=== PATIENT | female | born 1935 ===

== ENCOUNTER 2016-10-05 19:42 | Inpatient (IN) | payer MEDICARE ==
[2016-10-05 19:43] VITALS: BMI 27.4
[2016-10-05 22:53] LABS: BASO % 0.4 % (0.0-2.0); EOS # 0.1 K/uL (0.0-0.7); EOS % 1.1 % (0.0-4.0); HEMATOCRIT 40.3 % (34.0-47.0); LYMPH # 1.5 K/uL (1.0-4.3); LYMPH % 25.8 % (20.0-40.0); MEAN CORPUSCULAR HEMOGLOBIN 29.8 pg (27.0-31.0); MEAN CORPUSCULAR HGB CONC 33.6 g/dL (33.0-37.0); MEAN PLATELET VOLUME 7.9 fL (7.2-11.7); MONO # 0.4 K/uL (0.0-0.8); RED CELL DISTRIBUTION WIDTH 13.4 % (11.5-14.5)
[2016-10-05 22:54] LABS: RBC URINE 1 /hpf (0-3); URINE BILIRUBIN NEGATIVE (NEGATIVE); URINE BLOOD NEGATIVE (NEGATIVE); URINE COLOR Yellow (YELLOW); URINE GLUCOSE (UA) NORMAL (Normal); URINE KETONE NEGATIVE (NEGATIVE); URINE LEUKOCYTE ESTERASE TRACE Leu/uL (Negative); URINE PROTEIN NEGATIVE (NEGATIVE); URINE UROBILINOGEN NORMAL mg/dL (0.2-1.0); WBC URINE 1 /hpf (0-5)
[2016-10-05 22:57] LABS: MEAN CELL VOLUME 88.7 fL (81.0-99.0)
[2016-10-05 23:01] LABS: CHLORIDE 97 mmol/L (98-107); POTASSIUM 3.7 mmol/L (3.6-5.2); SODIUM 142 mmol/L (132-148)
[2016-10-05] MEDS ORDERED: Sodium Chloride 0.9% 2,000 ML IV ONE (23:02)
[2016-10-05 23:03] LABS: AST/SGOT 22 U/L (14-36); BILIRUBIN,TOTAL 0.6 mg/dL (0.2-1.3); CARBON DIOXIDE 29 mmol/L (22-30); GFR AFRICAN-AMERICAN > 60
[2016-10-05] MEDS ORDERED: Loperamide Hydrochloride 1 mg/5 ml Cup PO STA (23:03)
[2016-10-05 23:04] LABS: ALB/GLOB RATIO 1.4 (1.0-2.1); ALKALINE PHOSPHATASE 51 U/L (38-126); ALT/SGPT 13 U/L (9-52); BLOOD UREA NITROGEN 13 mg/dL (7-17); CALCIUM 9.6 mg/dl (8.6-10.4); GLUCOSE,RANDOM 146 mg/dL (65-105); TOTAL PROTEIN 7.6 g/dL (6.3-8.3)
[2016-10-05] MEDS ORDERED: Sodium Chloride 0.9% 1,000 ML ONE (23:15)
--- NOTE | 2016-10-06 00:44 | C.PDOC ---
History Of Present Illness Patient presents to the emergency room with complaints of vomiting and diarrhea since yesterday. Patient reports multiple episodes of watery, non-bloody vomiting, and watery, non-bloody diarrhea. Patient also notes minimal abdominal pain. Patient has not taken anything for pain. Patient denies fever, back pain, constipation, any urinary complaints, or any other complaints. Time Seen by Provider: 10/05/16 22:22 Chief Complaint (Nursing): GI Problem History Per: Patient History/Exam Limitations: no limitations Onset/Duration Of Symptoms: Days (1) Current Symptoms Are (Timing): Still Present Severity: Mild Radiation Of Pain To:: None Quality Of Discomfort: "Pain" Associated Symptoms: Vomiting, Diarrhea. denies: Fever, Back Pain, Constipation , Urinary Symptoms Exacerbating Factors: None Alleviating Factors: None Recent travel outside of the [place]: No Past Medical History Reviewed: Historical Data, Nursing Documentation, Vital Signs Vital Signs: Last Vital Signs Temp 98.1 F 10/06/16 14:07 Pulse 52 L 10/06/16 14:07 Resp 18 10/06/16 14:07 BP 173/73 H 10/06/16 14:07 Pulse Ox 99 10/06/16 14:07 - Medical History PMH: Arthritis, Asthma, Diabetes, Diverticulitis, Gastritis, HTN, Hypercholesterolemia, Kidney Stones - [facility] Procedures CLOSED ENDOSCOPIC BIOPSY OF LARGE INTESTINE (07/20/13) ESOPHAGOGASTRODUODENOSCOPY [EGD] W/CLOSED BIOPSY (07/21/13) Family History: States: Unknown Family Hx - Social History Hx Tobacco Use: No Hx Alcohol Use: No Hx Substance Use: No - Immunization History Hx Tetanus Toxoid Vaccination: Yes Hx Influenza Vaccination: Yes Hx Pneumococcal Vaccination: Yes Review Of Systems Except As Marked, All Systems Reviewed And Found Negative. Constitutional: Negative for: Fever Gastrointestinal: Positive for: Vomiting, Abdominal Pain (Minimal abdominal pain ), Diarrhea. Negative for: Constipation Physical Exam - Physical Exam Appears: Well, Non-toxic, No Acute Distress Skin: Normal Color, Warm, Dry Head: Atraumatic, Normacephalic Cardiovascular: Rhythm Regular, No Murmur Respiratory: Normal Breath Sounds, No Rales, No Rhonchi, No Wheezing Gastrointestinal/Abdominal: Soft, No Tenderness, No Guarding, No Rebound Extremity: Normal ROM, No Pedal Edema ED Course And Treatment - Laboratory Results Result Diagrams: 10/05/16 22:48 10/05/16 22:48 O2 Sat by Pulse Oximetry: 99 Medical Decision Making Medical Decision Making: Plan: -- Labs -- Imodium & Zofran Post meds abd continues soft with min tenderness Labs unremarkable except lipase ressults discussed with pt and daughter Pt still nauseated post meds and fluids Discussed with dr Quintero, covering dr Fontaine Plan observation Disposition - Disposition Disposition: HOSPITALIZED Disposition Time: 23:00 Condition: FAIR - Clinical Impression Clinical Impression: Vomiting and diarrhea, Elevated lipase - Scribe Statement The provider has reviewed the documentation as recorded by the Scribe Wai Cox All medical record entries made by the Scribe were at my direction and personally dictated by me. I have reviewed the chart and agree that the record accurately reflects my personal performance of the history, physical exam, medical decision making, and the department course for this patient. I have also personally directed, reviewed, and agree with the discharge instructions and disposition. Decision To Admit - Pt Status Changed To: Hospital Disposition Of: Observation - . Bed Request Type: Regular Admitting Physician: Jerry Quintero Patient Diagnosis: Vomiting and diarrhea, Elevated lipase
[2016-10-06] MEDS ORDERED: Albuterol-Ipratrop 3 mg / 0.5 (3 ml) UD INH PRN (06:31)
[2016-10-06] MEDS ORDERED: Sodium Chloride 0.9% 1,000 ML ONE (06:37)
[2016-10-06] MEDS: Sodium Chloride 0.9% 1,000 ML IV SCH ×2 (06:54→14:08)
[2016-10-06] MEDS: (Novolog) Insulin Aspart, Recombinant 100 u/ml 10 ml vial SC SCH ×4 (07:55→21:24)
[2016-10-06] MEDS: Naproxen 550 mg Tab PO PRN ×2 (09:38→21:50)
--- NOTE | 2016-10-06 14:31 | CP.PCM.HP ---
History of Present Illness - History of Present Illness History of Present Illness: Patient presents to the emergency room with complaints of vomiting and diarrhea since yesterday. Patient reports multiple episodes of watery, non-bloody vomiting, and watery, non-bloody diarrhea. Patient also notes minimal abdominal pain. Patient has not taken anything for pain. Patient denies fever, back pain, constipation, any urinary complaints, or any other complaints. Present on Admission - Present on Admission Any Indicators Present on Admission: No History of DVT/PE: No History of Uncontrolled Diabetes: No Urinary Catheter: No Decubitus Ulcer Present: No Review of Systems - Review of Systems All systems: reviewed and no additional remarkable complaints except (See HPI rest negative) Past Patient History - Infectious Disease Hx of Infectious Diseases: None - Past Medical History & Family History Past Medical History?: Yes - Past Social History Smoking Status: Never Smoked - CARDIAC Hx Hypercholesterolemia: Yes Hx Hypertension: Yes - PULMONARY Hx Asthma: Yes - NEUROLOGICAL Hx Neurological Disorder: No - HEENT Hx HEENT Problems: Yes Hx Glaucoma: Yes - RENAL Hx Chronic Kidney Disease: No Hx Kidney Stones: Yes - ENDOCRINE/METABOLIC Hx Endocrine Disorders: Yes Hx Diabetes Mellitus Type 2: Yes - HEMATOLOGICAL/ONCOLOGICAL Hx Blood Disorders: No Hx Blood Transfusions: No - INTEGUMENTARY Hx Dermatological Problems: No - MUSCULOSKELETAL/RHEUMATOLOGICAL Hx Arthritis: Yes - GASTROINTESTINAL Hx Diverticulitis: Yes Hx Gastritis: Yes - GENITOURINARY/GYNECOLOGICAL Hx Genitourinary Disorders: No - PSYCHIATRIC Hx Substance Use: No - SURGICAL HISTORY Hx Surgeries: Yes Hx Hysterectomy: Yes Other/Comment: VARICOSE VEIN STRIPPING AND LIGATION LEFT LEG. - ANESTHESIA Hx Anesthesia: Yes Hx Anesthesia Reactions: No Hx Malignant Hyperthermia: No Meds Allergies/Adverse Reactions: Allergies Allergy/AdvReac Type Severity Reaction Status Date / Time No Known Allergies Allergy Verified 10/05/16 20:23 Physical Exam - Head Exam Head Exam: NORMAL INSPECTION - Eye Exam Eye Exam: Normal appearance - ENT Exam ENT Exam: Mucous Membranes Moist - Respiratory Exam Respiratory Exam: Clear to Auscultation Bilateral, NORMAL BREATHING PATTERN - Cardiovascular Exam Cardiovascular Exam: REGULAR RHYTHM, +S1, +S2 - GI/Abdominal Exam GI & Abdominal Exam: Hyperactive Bowel Sounds, Soft - Exam External exam: NORMAL EXTERNAL EXAM Results - Vital Signs Recent Vital Signs: Last Vital Signs Temp 98.1 F 10/06/16 14:07 Pulse 52 L 10/06/16 14:07 Resp 18 10/06/16 14:07 BP 173/73 H 10/06/16 14:07 Pulse Ox 99 10/06/16 14:07 - Labs Result Diagrams: 10/05/16 22:48 10/05/16 22:48 Labs: Laboratory Results - last 24 hr 10/06/16 10/06/16 10/06/16 06:43 07:53 11:31 POC Glucose (mg/dL) 108 112 H Lipase 810 H Assessment & Plan - Assessment and Plan (Free Text) Assessment: Pancreatitis HTN DM NPO IVF Trend lipase Zofran PRN IV PPI Accucheck ISS Atenolol Enalapril
[2016-10-06 14:43] VITALS: RESP 20
[2016-10-07] MEDS: Sodium Chloride 0.9% 1,000 ML IV SCH ×6 (05:48→21:25)
[2016-10-07] MEDS: (Novolog) Insulin Aspart, Recombinant 100 u/ml 10 ml vial SC SCH ×4 (07:53→21:29)
[2016-10-07 08:07] LABS: CHLORIDE 107 mmol/L (98-107)
[2016-10-07 08:08] LABS: POTASSIUM 3.3 mmol/L (3.6-5.2); SODIUM 142 mmol/L (132-148)
[2016-10-07 08:10] LABS: ALB/GLOB RATIO 1.1 (1.0-2.1); AST/SGOT 21 U/L (14-36); BILIRUBIN,TOTAL 0.6 mg/dL (0.2-1.3); BLOOD UREA NITROGEN 10 mg/dL (7-17); CARBON DIOXIDE 26 mmol/L (22-30); GFR AFRICAN-AMERICAN > 60; TOTAL PROTEIN 5.6 g/dL (6.3-8.3)
[2016-10-07 08:11] LABS: ALKALINE PHOSPHATASE 38 U/L (38-126); ALT/SGPT 28 U/L (9-52); CALCIUM 7.8 mg/dl (8.6-10.4); GLUCOSE,RANDOM 78 mg/dL (65-105)
[2016-10-07] MEDS: Naproxen 550 mg Tab PO PRN (11:08)
[2016-10-07] MEDS ORDERED: Potassium Chloride 20 mEq/15 ml LIQ UD PO ONE (12:45)
--- NOTE | 2016-10-07 14:31 | CP.PCM.PN ---
Subjective - Date & Time of Evaluation Date of Evaluation: 10/07/16 Time of Evaluation: 14:30 - Subjective Subjective: Patient seen and examined Reports that her abdominal pain is resolved Objective - Vital Signs/Intake and Output Vital Signs (last 24 hours): Temp Pulse Resp BP Pulse Ox 98.4 F 54 L 20 148/80 97 10/07/16 00:00 10/07/16 00:00 10/07/16 00:00 10/07/16 11:08 10/07/16 00:00 - Medications Medications: Current Medications Albuterol/Ipratropium (Duoneb 3 Mg/0.5 Mg (3 Ml) Ud) 3 ml INH RQ6 PRN PRN Reason: SOB/wheezing Aspirin (Ecotrin) 81 mg PO DAILY [facility] Last Admin: 10/07/16 11:08 Dose: 81 mg Atenolol (Tenormin) 25 mg PO DAILY [facility] Last Admin: 10/07/16 11:09 Dose: 25 mg Enalapril Maleate (Vasotec) 5 mg PO DAILY [facility] Last Admin: 10/07/16 11:08 Dose: 5 mg Heparin Sodium (Porcine) (Heparin) 5,000 units SC Q8 [facility] Last Admin: 10/07/16 13:28 Dose: 5,000 units Sodium Chloride (Sodium Chloride 0.9%) 1,000 mls @ 150 mls/hr IV .Q6H40M [facility] Last Admin: 10/07/16 05:49 Dose: Not Given Dextrose (Dextrose 10% In Water) 1,000 mls @ 30 mls/hr IV .Q24H [facility] Last Admin: 10/06/16 21:46 Dose: 30 mls/hr Insulin Aspart (Novolog) 0 unit SC ACHS [facility] PRN Reason: Protocol Last Admin: 10/07/16 12:55 Dose: Not Given Naproxen (Anaprox Ds) 550 mg PO Q12H PRN PRN Reason: Pain, Mild (1-3) Last Admin: 10/07/16 11:08 Dose: 550 mg Ondansetron HCl (Zofran Inj) 4 mg IVP Q6H PRN PRN Reason: Nausea/Vomiting Last Admin: 10/06/16 14:08 Dose: 4 mg Pantoprazole Sodium (Protonix Inj) 40 mg IVP DAILY [facility] Last Admin: 10/07/16 11:09 Dose: 40 mg - Labs Labs: 10/07/16 07:46 - Head Exam Head Exam: NORMAL INSPECTION - Eye Exam Eye Exam: Normal appearance - ENT Exam ENT Exam: Mucous Membranes Moist - Respiratory Exam Respiratory Exam: Clear to Ausculation Bilateral - Cardiovascular Exam Cardiovascular Exam: REGULAR RHYTHM - GI/Abdominal Exam GI & Abdominal Exam: Soft, Normal Bowel Sounds - Extremities Exam Extremities Exam: Normal Inspection - Neurological Exam Neurological Exam: Alert, Oriented x3 Assessment and Plan - Assessment and Plan (Free Text) Assessment: Pancreatitis HTN DM Improved lipase Keep patient n.p.o. Continue IV fluids Abdominal sono Zofran PRN IV PPI Accucheck ISS Atenolol Enalapril
--- NOTE | 2016-10-07 16:00 | US ---
Right upper quadrant ultrasound dated 09/09/2016. History: Elevated lipase. Sonographic evaluation limited to the right upper quadrant of the abdomen performed. Comparison made with prior abdominal ultrasound 09/18/2016. The liver exhibits normal size measuring 12.2 cm in CC dimension liver exhibits smooth contour and normal echotexture. No evidence of hepatic mass or collection seen. No ascites. Gallbladder is physiologically distended. No evidence of intraluminal gallbladder calculi. No pericholecystic fluid collections or sonographic Bullock sign. Common bile duct is mildly dilated measuring 7.3 mm. Visualized portions of the pancreas appear grossly unremarkable. Right kidney is also normal without mass collection or calcification. Impression: Mildly dilated common bile duct.
[2016-10-08] MEDS: Sodium Chloride 0.9% 1,000 ML IV SCH (05:59)
[2016-10-08] MEDS: (Novolog) Insulin Aspart, Recombinant 100 u/ml 10 ml vial SC SCH ×4 (07:58→21:41)
[2016-10-08] MEDS ORDERED: Sodium Chloride 0.9% 1,000 ML IV SCH (08:59)
[2016-10-08 17:21] LABS: CHLORIDE 106 mmol/L (98-107); POTASSIUM 3.6 mmol/L (3.6-5.2); SODIUM 141 mmol/L (132-148)
[2016-10-08 17:23] LABS: GFR AFRICAN-AMERICAN > 60
[2016-10-08 17:24] LABS: BLOOD UREA NITROGEN 4 mg/dL (7-17); CALCIUM 8.1 mg/dl (8.6-10.4); CARBON DIOXIDE 22 mmol/L (22-30); GLUCOSE,RANDOM 106 mg/dL (65-105)
--- NOTE | 2016-10-08 19:46 | CP.PCM.PN ---
Subjective - Date & Time of Evaluation Date of Evaluation: 10/08/16 Time of Evaluation: 19:46 - Subjective Subjective: Patient seen and examined Clear liquid started Denies any abdominal pain Complain of constipation Objective - Vital Signs/Intake and Output Vital Signs (last 24 hours): Temp Pulse Resp BP Pulse Ox 97.6 F 53 L 20 172/67 H 97 10/08/16 08:00 10/08/16 08:00 10/08/16 08:00 10/08/16 10:09 10/08/16 08:00 Intake and Output: 10/08/16 10/09/16 18:59 06:59 Intake Total 400 Balance 400 - Medications Medications: Current Medications Albuterol/Ipratropium (Duoneb 3 Mg/0.5 Mg (3 Ml) Ud) 3 ml INH RQ6 PRN PRN Reason: SOB/wheezing Aspirin (Ecotrin) 81 mg PO DAILY [facility] Last Admin: 10/08/16 10:11 Dose: 81 mg Atenolol (Tenormin) 25 mg PO DAILY [facility] Last Admin: 10/08/16 10:09 Dose: 25 mg Enalapril Maleate (Vasotec) 5 mg PO DAILY [facility] Last Admin: 10/08/16 10:09 Dose: 5 mg Heparin Sodium (Porcine) (Heparin) 5,000 units SC Q8 [facility] Last Admin: 10/08/16 14:48 Dose: 5,000 units Insulin Aspart (Novolog) 0 unit SC ACHS [facility] PRN Reason: Protocol Last Admin: 10/08/16 18:29 Dose: Not Given Naproxen (Anaprox Ds) 550 mg PO Q12H PRN PRN Reason: Pain, Mild (1-3) Last Admin: 10/07/16 11:08 Dose: 550 mg Ondansetron HCl (Zofran Inj) 4 mg IVP Q6H PRN PRN Reason: Nausea/Vomiting Last Admin: 10/06/16 14:08 Dose: 4 mg Pantoprazole Sodium (Protonix Inj) 40 mg IVP DAILY [facility] Last Admin: 10/08/16 10:11 Dose: 40 mg - Labs Labs: 10/08/16 17:06 - Head Exam Head Exam: NORMAL INSPECTION - ENT Exam ENT Exam: Mucous Membranes Moist - Respiratory Exam Respiratory Exam: Clear to Ausculation Bilateral - Cardiovascular Exam Cardiovascular Exam: REGULAR RHYTHM - GI/Abdominal Exam GI & Abdominal Exam: Soft, Normal Bowel Sounds - Exam External exam: NORMAL EXTERNAL EXAM Assessment and Plan - Assessment and Plan (Free Text) Assessment: Pancreatitis HTN DM Lactulose 15 mL 1 dose now Abdominal swallow results noted Zofran PRN IV PPI Accucheck ISS Atenolol Enalapril DC planning for tomorrow morning
[2016-10-09 08:54] VITALS: TEMP 97.9
[2016-10-09] MEDS: (Novolog) Insulin Aspart, Recombinant 100 u/ml 10 ml vial SC SCH ×2 (09:00→13:06)
[2016-10-09] MEDS ORDERED: Belladonna-Phenobarbital PO ONE (11:49)
--- NOTE | 2016-10-09 16:58 | CP.PCM.PN ---
Subjective - Date & Time of Evaluation Date of Evaluation: 10/09/16 Time of Evaluation: 16:58 - Subjective Subjective: Awake, alert, no acute pain, NAD. Objective - Vital Signs/Intake and Output Vital Signs (last 24 hours): Temp Pulse Resp BP Pulse Ox 97.9 F 60 20 163/77 H 97 10/09/16 08:53 10/09/16 08:53 10/09/16 08:53 10/09/16 09:00 10/09/16 08:53 Intake and Output: 10/09/16 10/09/16 06:59 18:59 Intake Total 300 340 Balance 300 340 - Medications Medications: Current Medications Albuterol/Ipratropium (Duoneb 3 Mg/0.5 Mg (3 Ml) Ud) 3 ml INH RQ6 PRN PRN Reason: SOB/wheezing Aspirin (Ecotrin) 81 mg PO DAILY [facility] Last Admin: 10/09/16 09:01 Dose: 81 mg Atenolol (Tenormin) 25 mg PO DAILY [facility] Last Admin: 10/09/16 09:01 Dose: 25 mg Enalapril Maleate (Vasotec) 5 mg PO DAILY [facility] Last Admin: 10/09/16 09:00 Dose: 5 mg Heparin Sodium (Porcine) (Heparin) 5,000 units SC Q8 [facility] Last Admin: 10/09/16 13:18 Dose: 5,000 units Insulin Aspart (Novolog) 0 unit SC ACHS [facility] PRN Reason: Protocol Last Admin: 10/09/16 13:06 Dose: Not Given Naproxen (Anaprox Ds) 550 mg PO Q12H PRN PRN Reason: Pain, Mild (1-3) Last Admin: 10/07/16 11:08 Dose: 550 mg Ondansetron HCl (Zofran Inj) 4 mg IVP Q6H PRN PRN Reason: Nausea/Vomiting Last Admin: 10/09/16 09:06 Dose: 4 mg Pantoprazole Sodium (Protonix Inj) 40 mg IVP DAILY [facility] Last Admin: 10/09/16 10:00 Dose: 40 mg - Labs Labs: 10/08/16 17:06 Assessment and Plan - Assessment and Plan (Free Text) Assessment: Patient is seen and examined. Alert and awake, no acute abdominal pain or vomiting. Tolerating diet. Lipase back to normal. D/W DR Quintero, plan to discharge home today. Advised to advance diet slowly and f/u with PMD in 1 week.
[2016-10-09 17:11] VITALS: BP 131/69; PULSE 54; O2SAT 96
--- NOTE | 2016-10-09 22:27 | CP.PCM.DIS ---
Provider - Provider Date of Admission: 10/06/16 14:36 Attending physician: El De Dios MD Time Spent in preparation of Discharge (in minutes): 25 Diagnosis - Discharge Diagnosis (1) Pancreatitis Status: Acute Hospital Course - Lab Results Lab Results: Most Recent Lab Values WBC 6.0 K/uL (4.8-10.8) 10/05/16 22:48 RBC 4.55 Mil/uL (3.80-5.20) 10/05/16 22:48 Hgb 13.5 g/dL (11.0-16.0) 10/05/16 22:48 Hct 40.3 % (34.0-47.0) 10/05/16 22:48 MCV 88.7 fL (81.0-99.0) D 10/05/16 22:48 MCH 29.8 pg (27.0-31.0) 10/05/16 22:48 MCHC 33.6 g/dL (33.0-37.0) 10/05/16 22:48 RDW 13.4 % (11.5-14.5) 10/05/16 22:48 Plt Count 184 K/uL (130-400) 10/05/16 22:48 MPV 7.9 fL (7.2-11.7) 10/05/16 22:48 Neut % (Auto) 66.7 % (50.0-75.0) 10/05/16 22:48 Lymph % (Auto) 25.8 % (20.0-40.0) 10/05/16 22:48 [place] % (Auto) 6.0 % (0.0-10.0) 10/05/16 22:48 Eos % (Auto) 1.1 % (0.0-4.0) 10/05/16 22:48 Baso % (Auto) 0.4 % (0.0-2.0) 10/05/16 22:48 Neut # 4.0 K/uL (1.8-7.0) 10/05/16 22:48 Lymph # 1.5 K/uL (1.0-4.3) 10/05/16 22:48 [place] # 0.4 K/uL (0.0-0.8) 10/05/16 22:48 Eos # 0.1 K/uL (0.0-0.7) 10/05/16 22:48 Baso # 0.0 K/uL (0.0-0.2) 10/05/16 22:48 Sodium 141 mmol/L (132-148) 10/08/16 17:06 Potassium 3.6 mmol/L (3.6-5.2) 10/08/16 17:06 Chloride 106 mmol/L (98-107) 10/08/16 17:06 Carbon Dioxide 22 mmol/L (22-30) 10/08/16 17:06 Anion Gap 17 (10-20) 10/08/16 17:06 BUN 4 mg/dL (7-17) L 10/08/16 17:06 Creatinine 0.6 MG/DL (0.7-1.2) L 10/08/16 17:06 Est GFR ( Amer) > 60 10/08/16 17:06 Est GFR (Non-Af Amer) > 60 10/08/16 17:06 POC Glucose (mg/dL) 171 mg/dL (65-110) H 10/09/16 16:16 Random Glucose 106 mg/dL (65-105) H 10/08/16 17:06 Calcium 8.1 mg/dl (8.6-10.4) L 10/08/16 17:06 Total Bilirubin 0.6 mg/dL (0.2-1.3) 10/07/16 07:46 AST 21 U/L (14-36) 10/07/16 07:46 ALT 28 U/L (9-52) 10/07/16 07:46 Alkaline Phosphatase 38 U/L (38-126) D 10/07/16 07:46 Total Protein 5.6 g/dL (6.3-8.3) L 10/07/16 07:46 Albumin 2.9 g/dL (3.5-5.0) L D 10/07/16 07:46 Globulin 2.6 gm/dL (2.2-3.9) 10/07/16 07:46 Albumin/Globulin Ratio 1.1 (1.0-2.1) 10/07/16 07:46 Lipase 84 U/L (23-300) 10/09/16 07:04 Urine Color Yellow (YELLOW) 10/05/16 22:48 Urine Clarity Clear (Clear) 10/05/16 22:48 Urine pH 7.0 (5.0-8.0) 10/05/16 22:48 Ur Specific [place] 1.008 (1.003-1.030) 10/05/16 22:48 Urine Protein Negative mg/dL (NEGATIVE) 10/05/16 22:48 Urine Glucose (UA) Normal mg/dL (Normal) 10/05/16 22:48 Urine Ketones Negative mg/dL (NEGATIVE) 10/05/16 22:48 Urine Blood Negative (NEGATIVE) 10/05/16 22:48 Urine Nitrate Negative (NEGATIVE) 10/05/16 22:48 Urine Bilirubin Negative (NEGATIVE) 10/05/16 22:48 Urine Urobilinogen Normal mg/dL (0.2-1.0) 10/05/16 22:48 Ur Leukocyte Esterase Trace K[place]/uL (Negative) 10/05/16 22:48 Urine WBC (Auto) 1 /hpf (0-5) 10/05/16 22:48 Urine RBC (Auto) 1 /hpf (0-3) 10/05/16 22:48 Ur Squamous Epith Cells 2 /hpf (0-5) 10/05/16 22:48 - Hospital Course Hospital Course: Patient was kept n.p.o. and given IV fluids. The lipase normalized. Abdominal sono showed mildly dilated common bile duct. The patient was reinitiated on oral feeds and tolerated them well. The patient is being discharged home to be followed up by her PMD as outpatient. Discharge Exam - Head Exam Head Exam: NORMAL INSPECTION - Eye Exam Eye Exam: Normal appearance - Respiratory Exam Respiratory Exam: Clear to PA & Lateral, NORMAL BREATHING PATTERN - Cardiovascular Exam Cardiovascular Exam: REGULAR RHYTHM - GI/Abdominal Exam GI & Abdominal Exam: Normal Bowel Sounds, Soft - Extremities Exam Extremities exam: normal inspection - Neurological Exam Neurological exam: Alert, Oriented x3 Discharge Plan - Discharge Medications Prescriptions: Atropine/Hyoscyamine [] 1 tab PO TID PRN #15 tab PRN Reason: Pain, Moderate (4-7) - Follow Up Plan Condition: FAIR Disposition: HOME/ ROUTINE Instructions: Belladonna Alkaloids/Phenobarbital (By mouth), Acute Nausea and Vomiting (DC), Acute Diarrhea (GEN) Referrals: Jerry Quintero MD [Staff Provider] -
== END 2016-10-09 18:15 | disposition home or self-care (01) | DRG 440 ==
LOC: C.ER 19:42 → C.9E 10-06 00:52 → C.3T 10-06 13:09 → OBSVTOIN 10-06 14:36
PROVIDERS: ADMIT Family Medicine; ATTEND Family Medicine
DX: K85.90 Acute pancreatitis without necrosis or infection, unspecified (principal); E11.9 Type 2 diabetes mellitus without complications; I10 Essential (primary) hypertension; Z79.4 Long term (current) use of insulin; M19.90 Unspecified osteoarthritis, unspecified site; J45.909 Unspecified asthma, uncomplicated; H40.9 Unspecified glaucoma; E78.00 Pure hypercholesterolemia, unspecified; Z90.710 Acquired absence of both cervix and uterus

== ENCOUNTER 2016-11-20 08:06 | Day surgery (SDC) | payer MEDICARE ==
[2016-11-20 08:57] VITALS: BMI 26.6
[2016-11-20 09:23] VITALS: O2SAT 100
--- NOTE | 2016-11-20 10:01 | CP.SDSHP ---
Same Day Surgery H & P - History Proposed Procedure: EGD Pre-Op Diagnosis: SEE NOTES - Previous Medical/Surgical History Cardiac: Hypertension, ASHD/CAD Endocrine/Metabolic: Other Misc: Other Pain: 4.Moderate Pain - Allergies Allergies: Allergies No Known Allergies Allergy (Verified 10/05/16 20:23) - Physical Exam General Appearance: N Vital Signs: Vital Signs 11/20/16 09:06 Temperature 97.8 F Pulse Rate 56 L Respiratory 19 Rate Blood Pressure 120/50 L O2 Sat by Pulse 100 Oximetry Mental Status: Alert & Oriented x3 Neuro: Other Heart: Other Lungs: WNL GI: WNL - {Optional Preform as Required} Breast: WNL Abdomen: Other Rectal: Other Integument: WNL : WNL Ortho: Other ENT: WNL - Impression Pt. Evaluated Today:Candidate for Anesthesia & Procedure: Yes - Date & Time Time: 10:02 Short Stay Discharge - Short Stay Discharge Admitting Diagnosis/Reason for Visit: MELENA Disposition: HOME/ ROUTINE
[2016-11-20] MEDS ORDERED: Lactated Ringer's 500 ML IV ONE ×2 (10:02)
[2016-11-20] MEDS ORDERED: Pantoprazole 40 mg EC Tab PO STA (10:04)
[2016-11-20] MEDS ORDERED: Belladonna-Phenobarbital PO STA (10:05)
[2016-11-20] MEDS ORDERED: Albuterol HFA 90 mcg/actuation (8 g) ONE (10:05)
[2016-11-20] MEDS ORDERED: Lidocaine Hydrochloride 5 ML INJ ONE (10:05)
[2016-11-20] MEDS ORDERED: Propofol 10 mg/ml Inj (20 ML) ONE (10:05)
[2016-11-20 12:05] VITALS: TEMP 97.3
[2016-11-20 12:07] VITALS: RESP 18
[2016-11-20 12:15] VITALS: BP 131/77; PULSE 58
== END 2016-11-20 11:40 | disposition home or self-care (01) ==
LOC: C.ENDO 08:06
PROVIDERS: ATTEND Specialist
DX: K25.9 Gastric ulcer, unspecified as acute or chronic, without hemorrhage or perforation (principal); K26.9 Duodenal ulcer, unspecified as acute or chronic, without hemorrhage or perforation; K29.70 Gastritis, unspecified, without bleeding; K44.9 Diaphragmatic hernia without obstruction or gangrene
CPT/HCPCS: 43239; 82948; 88305; 88342; J2704; J7120

== ENCOUNTER 2017-01-03 11:17 | Emergency (ER) | payer MEDICARE ==
[2017-01-03 11:18] VITALS: BMI 26.6
[2017-01-03 13:10] LABS: BASO % 0.5 % (0.0-2.0); EOS # 0.2 K/uL (0.0-0.7); HEMATOCRIT 33.6 % (34.0-47.0); LYMPH # 1.5 K/uL (1.0-4.3); LYMPH % 34.6 % (20.0-40.0); MEAN CORPUSCULAR HEMOGLOBIN 30.1 pg (27.0-31.0); MEAN CORPUSCULAR HGB CONC 33.4 g/dL (33.0-37.0); MEAN PLATELET VOLUME 7.9 fL (7.2-11.7); MONO # 0.5 K/uL (0.0-0.8); MONO % 10.5 % (0.0-10.0); RED CELL DISTRIBUTION WIDTH 13.6 % (11.5-14.5); WHITE BLOOD COUNT 4.4 K/uL (4.8-10.8)
[2017-01-03 13:14] LABS: CHLORIDE 100 mmol/L (98-107)
[2017-01-03 13:15] LABS: POTASSIUM 4.3 mmol/L (3.6-5.2); SODIUM 138 mmol/L (132-148)
[2017-01-03 13:17] LABS: ALB/GLOB RATIO 1.4 (1.0-2.1); ALKALINE PHOSPHATASE 55 U/L (38-126); ALT/SGPT 28 U/L (9-52); AST/SGOT 20 U/L (14-36); BILIRUBIN,TOTAL 0.8 mg/dL (0.2-1.3); BLOOD UREA NITROGEN 14 mg/dL (7-17); CARBON DIOXIDE 28 mmol/L (22-30); GFR AFRICAN-AMERICAN > 60; TOTAL PROTEIN 7.1 g/dL (6.3-8.3)
[2017-01-03 13:18] LABS: CALCIUM 9.9 mg/dl (8.6-10.4); GLUCOSE,RANDOM 126 mg/dL (65-105)
--- NOTE | 2017-01-03 13:35 | C.PDOC ---
History Of Present Illness 81-year-old female, presents to the emergency department with complaints of B/L leg swelling for the past several days. Patient states she has a Hx of similar in the past. Patient is also complaining of intermittent red areas on left leg. Denies chest pain or shortness of breath. Chief Complaint (Nursing): Lower Extremity Problem/Injury History Per: Patient History/Exam Limitations: no limitations Onset/Duration Of Symptoms: Days Current Symptoms Are (Timing): Still Present Severity: Moderate Past Medical History Reviewed: Historical Data, Nursing Documentation, Vital Signs Vital Signs: Last Vital Signs Temp 98.0 F 01/03/17 15:14 Pulse 67 01/03/17 15:14 Resp 18 01/03/17 15:14 BP 132/60 01/03/17 15:14 Pulse Ox 99 01/03/17 15:14 - Medical History PMH: Arthritis, Asthma, COPD (ASTHMA), Diabetes, Diverticulitis, Gastritis, HTN , Hypercholesterolemia, Kidney Stones, Chronic Kidney Disease Denies: Colonic Polyps Surgical History: Denies: Endoscopy - [facility] Procedures CLOSED ENDOSCOPIC BIOPSY OF LARGE INTESTINE (07/20/13) ESOPHAGOGASTRODUODENOSCOPY [EGD] W/CLOSED BIOPSY (07/21/13) Family History: States: No Known Family Hx - Social History Hx Tobacco Use: No Hx Alcohol Use: No Hx Substance Use: No - Immunization History Hx Tetanus Toxoid Vaccination: Yes Hx Influenza Vaccination: Yes Hx Pneumococcal Vaccination: Yes Review Of Systems Except As Marked, All Systems Reviewed And Found Negative. Constitutional: Negative for: Fever Cardiovascular: Negative for: Chest Pain, Palpitations Respiratory: Negative for: Cough, Shortness of Breath Musculoskeletal: Positive for: Other (B/L LEG SWELLING W/ RED AREAS) Physical Exam - Physical Exam Appears: Non-toxic, No Acute Distress Skin: Other (1cm macular areas on left leg. No skin break. No discharge. ) Head: Atraumatic, Normacephalic Neck: Normal ROM Chest: Symmetrical Cardiovascular: Rhythm Regular, No Murmur Respiratory: Normal Breath Sounds, No Accessory Muscle Use Extremity: Normal ROM, Pedal Edema (+1 B/L. Pulses intact), No Calf Tenderness, No Deformity Neurological/Psych: Oriented x3 ED Course And Treatment - Laboratory Results Result Diagrams: 01/03/17 13:02 01/03/17 13:02 O2 Sat by Pulse Oximetry: 97 Disposition - Disposition Referrals: [facility], [Non-Staff] - Disposition: HOME/ ROUTINE Disposition Time: 15:00 Condition: GOOD Additional Instructions: Thank you for letting us take care of you today. Your provider was Dr. Marrero. You were treated for leg pain. The emergency medical care you received today was directed at your acute symptoms. If you were prescribed any medication, please fill it and take as directed. It may take several days for your symptoms to resolve. Return to the Emergency Department if your symptoms worsen, do not improve, or if you have any other problems. Please contact your doctor or call one of the physicians/clinics you have been referred to that are listed on the Patient Visit Information form that is included in your discharge packet. Bring any paperwork you were given at discharge with you along with any medications you are taking to your follow up visit. Our treatment cannot replace ongoing medical care by a primary care provider (PCP) outside of the emergency department. Thank you for allowing the [facility] team to be part of your care today. Follow up with your doctor in 3-4 days for re-evaluation. Prescriptions: Hydrocortisone 2.5% 30 applic EXT BID #1 oint Ibuprofen [Motrin] 600 mg PO Q6 PRN #20 tab PRN Reason: Pain, Moderate (4-7) Instructions: Leg Pain (ED) - Clinical Impression Clinical Impression: Leg pain - Scribe Statement The provider has reviewed the documentation as recorded by the Scribe Timo Funes All medical record entries made by the Scribe were at my direction and personally dictated by me. I have reviewed the chart and agree that the record accurately reflects my personal performance of the history, physical exam, medical decision making, and the department course for this patient. I have also personally directed, reviewed, and agree with the discharge instructions and disposition.
[2017-01-03 15:15] VITALS: BP 132/60; PULSE 67; RESP 18; TEMP 98
--- NOTE | 2017-01-03 15:16 | VASCLAB ---
PROCEDURE: Lower Extremity Venous Duplex Exam. HISTORY: Leg swelling, DVT PRIORS: None. TECHNIQUE: Bilateral common femoral, femoral, popliteal and posterior tibial, peroneal and great saphenous veins were evaluated. Flow was assessed with color Doppler, compressibility, assessment of phasic flow and augmentation response. Report prepared by Dayron Lima, JB, RVT FINDINGS: RIGHT: 1. Common Femoral Vein: 1.1. Compressibility - Fully compressible: Thrombus - None : Flow - Phasic: Augmentation -Normal: Reflux - None. 2. Femoral Vein: 2.1. Compressibility - Fully compressible: Thrombus - None : Flow - Phasic: Augmentation -Normal: Reflux - None. 3. Popliteal Vein: 3.1. Compressibility - Fully compressible: Thrombus - None : Flow - Phasic: Augmentation -Normal: Reflux - None. 4. Posterior Tibial Vein: 4.1. Compressibility - Fully compressible: Thrombus - None: Flow - Phasic: Augmentation -Normal: Reflux - None. 5. Peroneal Vein: 5.1. Compressibility - Fully compressible: Thrombus - None: Flow - Phasic: Augmentation -Normal: Reflux - None. 6. Great Saphenous Vein: 6.1. Compressibility - Fully compressible: Thrombus - None: Flow - Phasic: Augmentation - Normal: Reflux - None. LEFT: 1. Common Femoral Vein: 1.1. Compressibility - Fully compressible: Thrombus - None: Flow - Phasic: Augmentation -Normal: Reflux - None. 2. Femoral Vein: 2.1. Compressibility - Fully compressible: Thrombus - None: Flow - Phasic: Augmentation -Normal: Reflux - None. 3. Popliteal Vein: 3.1. Compressibility - Fully compressible: Thrombus - None : Flow - Phasic: Augmentation -Normal: Reflux - None. 4. Posterior Tibial Vein: 4.1. Compressibility - Fully compressible: Thrombus - None: Flow - Phasic: Augmentation -Normal: Reflux - None. 5. Peroneal Vein: 5.1. Compressibility - Fully compressible: Thrombus - None: Flow - Phasic: Augmentation -Normal: Reflux - None. 6. Great Saphenous Vein: 6.1. Compressibility - Fully compressible: Thrombus - None: Flow - Phasic: Augmentation - Normal: Reflux - None. OTHER FINDINGS: Right: None significant. Left: None significant. IMPRESSION: Right: No evidence of deep or superficial vein thrombosis of the right lower extremity. Normal valve function noted of the right side. Left: No evidence of deep or superficial vein thrombosis of the left lower extremity. Normal valve function noted of the left side.
[2017-01-03 18:35] VITALS: O2SAT 97
== END 2017-01-03 15:56 | disposition home or self-care (01) ==
LOC: C.ER 11:17
DX: M79.605 Pain in left leg (principal); M79.604 Pain in right leg